=== PATIENT | female | born 1995 | race Two or more races ===

== ENCOUNTER 2016-08-21 06:57 | Inpatient (IN) | payer MEDICAID ==
[~2016-08-21] VITALS: Ht 170.2 cm; Wt 77.3 kg
--- NOTE | ~2016-08-21 | OR ---
PATIENT'S NAME: MICHAEL PULIDO [facility] AGE: 20 Y [address] ROOM: [place] [id number] LOCATION: GOBS ADMIT DATE: 08/21/2016 OR/Procedure Report DISCHARGE DATE: FAMILY PHYSICIAN: PHYSICIAN, NO ATTENDING PHYSICIAN: Luli Melo SURGEON: Luli Melo MD WEB CONTENT DEVELOPER: DATE OF PROCEDURE: 08/21/2016 PREOPERATIVE DIAGNOSES: 1. Intrauterine at 39 weeks' and 5 days'. 2. Labor. POSTOPERATIVE DIAGNOSES: 1. Intrauterine at 39 weeks' and 5 days'. 2. Labor. PROCEDURE: Spontaneous vaginal delivery. ESTIMATED BLOOD LOSS: 300 mL. ANESTHESIA: Epidural. FINDINGS: Male . score 8 and 9. Weight is pending. Clear amniotic fluid. First-degree perineal laceration. Normal placenta with 3- vessel cord. INDICATIONS: This patient is a 20-year-old G1 female who presented to Labor and Delivery with contractions. She had an uncomplicated . She had artificial rupture of membranes at 5-cm. She had Pitocin augmentation, but then she progressed along a faster than normal labor curve to completion. She underwent expulsive efforts for about an hour. DESCRIPTION OF PROCEDURE: With expulsive efforts, the head delivered over an intact perineum. The rest of the fetus delivered. The nose and mouth were bulb suctioned. The cord was clamped and cut. The was handed to awaiting team. Cord blood was drawn. The placenta delivered to manual traction. Cervix, vagina, and perineum were examined. A first-degree perineal laceration was noted. It was repaired in standard fashion with Vicryl suture. COMPLICATIONS: None. CONDITION: Mom stable in room. Infant to nursery. PATIENT'S NAME: MICHAEL PULIDO [facility] AGE: 20 Y [address] ROOM: [place] [address] LOCATION: BS ADMIT DATE: 08/21/2016 OR/Procedure Report DISCHARGE DATE: FAMILY PHYSICIAN: , NO ATTENDING PHYSICIAN: Luli Melo MD SUZAN RG/modl /[id number] d: 08/22/16 0127 t: 08/24/161999, OPERATIVE SUMMARY
[2016-08-21 08:27] LABS: BASOPHIL # 0.1 K/uL (0.0-0.2); BASOPHIL % 0.4 %; EOSINOPHIL % 0.2 %; HEMATOCRIT 39.4 % (33.0-46.0); HEMOGLOBIN 13.2 g/dL (11.0-15.0); IMMATURE GRANULOCYTE # 0.1 K/uL (0.0-0.3); IMMATURE GRANULOCYTE % 0.4 %; LYMPHOCYTE # 2.6 K/uL (0.8-4.0); LYMPHOCYTE % 15.4 %; MCH 29.1 pg (27.0-34.0); MCHC 33.5 gm/dL (32.0-36.5); MCV 86.8 fl (83.0-98.0); MONOCYTE % 5.8 %; MPV 11.6 fl (9.4-12.4); NEUTROPHIL # (ANC) 13.2 K/uL (1.8-7.8); NEUTROPHIL % 77.8 %; NRBC % 0 /100WBC (0-0.00); PLATELET COUNT 200 K/uL (150-450); RBC 4.54 M/uL (3.50-5.00)
[2016-08-21] MEDS ORDERED: PRENATAL 1+1)(P1 TAB PO (08:44)
[2016-08-21] MEDS ORDERED: VALTREX500 MG PO (08:48)
[2016-08-21] MEDS ORDERED: METAMUCIL PACKE1 PKT PO (08:49)
[2016-08-21] MEDS ORDERED: ANUSOL-HC25 MG R (09:07)
[2016-08-21] MEDS ORDERED: TUCKS1 EACH TOP (09:08)
--- NOTE | 2016-08-22 04:41 | NUR ---
VSS. Motrin at 1900 and 1Percocet at 0045. Fundus firm. Bleeding small. Ambulates in room. Breastfeeds on demand, uses shield and needs assist. SL to left wrist. Uses tucks pads and dermoplast spray.
[2016-08-22 05:37] LABS: BASOPHIL % 0.2 %; EOSINOPHIL # 0.1 K/uL (0.0-0.5); EOSINOPHIL % 0.5 %; HEMOGLOBIN 10.4 g/dL (11.0-15.0); IMMATURE GRANULOCYTE # 0.1 K/uL (0.0-0.3); IMMATURE GRANULOCYTE % 0.5 %; LYMPHOCYTE # 3.5 K/uL (0.8-4.0); LYMPHOCYTE % 18.7 %; MCH 29.2 pg (27.0-34.0); MCHC 33.2 gm/dL (32.0-36.5); MCV 87.9 fl (83.0-98.0); MONOCYTE # 1.2 K/uL (0.0-1.0); MONOCYTE % 6.3 %; MPV 11.1 fl (9.4-12.4); NEUTROPHIL # (ANC) 13.7 K/uL (1.8-7.8); NEUTROPHIL % 73.8 %; NRBC % 0 /100WBC (0-0.00); PLATELET COUNT 175 K/uL (150-450); RBC 3.56 M/uL (3.50-5.00); RDW-CV 13.1 % (11.9-14.6)
[2016-08-22 05:39] LABS: HEMATOCRIT 31.3 % (33.0-46.0); WBC 18.5 K/uL (4.0-11.0)
--- NOTE | 2016-08-23 05:21 | NUR ---
VSS, Summer at 1840, 1 Percocet at 0255, pt states it's starting to burn when she urinates, Percocet helped a bit, need to watch videos
[2016-08-23] MEDS ORDERED: DERMOPLAST SPRA56 GM TOP (11:56)
[2016-08-23] MEDS ORDERED: MOTRIN800 MG PO (11:57)
[2016-08-23] MEDS ORDERED: PERCOCET 5-3251 EACH PO (11:58)
[2016-08-23] MEDS ORDERED: LANSINOH7 GM TOP (11:58)
== END 2016-08-23 17:00 | disposition disaster alternative care site (69) | DRG 774 ==
LOC: GOBS 06:57 → EDSTATUS 08-23 06:46 → GOBS 08-23 06:47 → GOBM 08-23 12:47 → GOBS 08-23 17:00
PROVIDERS: ADMIT Obstetrics & Gynecology
DX: O98.32 Other infections with a predominantly sexual mode of transmission complicating childbirth (principal); A60.04 Herpesviral vulvovaginitis; Z79.899 Other long term (current) drug therapy; O70.0 First degree perineal laceration during delivery; Z3A.39 39 weeks gestation of pregnancy; Z37.0 Single live birth
CPT/HCPCS: J2590; J3010; J7120